=== PATIENT | female | born 1995 | race Caucasian/White ===

== ENCOUNTER 2017-03-07 18:48 | Emergency (ER) | END 2017-03-07 21:31 | disposition home or self-care (01) | DX: J02.9 Acute pharyngitis, unspecified (principal) | CPT/HCPCS: 70360; 71010; Z7502; Z7610 ==

== ENCOUNTER 2018-03-08 02:47 | Emergency (ER) | END 2018-03-08 03:22 | disposition home or self-care (01) ==

== ENCOUNTER 2018-03-16 01:20 | Emergency (ER) | END 2018-03-16 02:03 | disposition home or self-care (01) ==

== ENCOUNTER 2018-08-06 00:44 | Emergency (ER) | payer SELFPAY ==
[~2018-08-06] VITALS: Wt 62.0 kg
[~2018-08-06 00:44] MED LIST: ACET1TAB40 PO; ALBU8.5H8 INH; AMOX500C2 PO; AZIT250T PO; BENZ-6 PO; D-ME473S2 PO; HYDR-4011 PO; IBUP-1542 PO; NAPR-985 PO; PREN-39 PO; PSEU30TA38 PO
[2018-08-06 00:51] VITALS: BP 120/62; PULSE 105; RESP 18
--- NOTE | 2018-08-06 01:38 | ERD ---
ER Documentation Chief Complaint Chief Complaint RIGHT INDEX FINGER LAC FROM METAL CAN HPI 23-year-old female presents with laceration to right second finger on the distal pad surface that was sustained today when she was opening a can. She is right- hand dominant. No numbness or tingling. No loss of range of motion. Tetanus vaccination is up-to-date. ROS All systems reviewed and are negative except as per history of present illness. Medications Home Meds Active Scripts Ibuprofen* (Motrin*) 600 Mg Tab, 600 MG PO Q6H PRN for PAIN AND OR ELEVATED TEMP, #30 TAB Prov:CHELSY LUNDBERG NP 03/16/18 Benzonatate* (Tessalon Perle*) 100 Mg Capsule, 100 MG PO Q8H PRN for COUGH, #30 CAP Prov:CHELSY LUNDBERG NP 03/16/18 Albuterol Sulfate* (Proair HFA*) 8.5 Gm Hfa.aer.ad, 2 PUFF INH Q4H PRN for WHEEZING AND SOB, #1 INHALER Prov:CHELSY LUNDBERG NP 03/16/18 Azithromycin* (Zithromax*) 250 Mg Tablet, 250 MG PO .ZPACK DIRECTED, #6 TAB TAKE 500 MG (2 TABS) THE FIRST DAY THEN 250 MG (1 TAB) DAYS 2-5 Prov:CHELSY LUNDBERG NP 03/16/18 Pseudoephedrine Hcl* (Pseudoephedrine Hcl*) 30 Mg Tablet, 30 MG PO Q6 PRN for CONGESTION, #30 TAB Prov:SHEA VEGA PA-C 03/08/18 Dextromethorphan Hb-Promethazine Hcl* (Promethazine DM* Syrup) 473 Ml Syrup, 5 ML PO Q6 PRN for COUGH, #100 ML Prov:SHEA VEGA PA-C 03/08/18 Naproxen* (Naprosyn*) 500 Mg Tablet, 500 MG PO BID PRN for PAIN AND/OR INFLAMMATION, #30 TAB Prov:SHEA VEGA PA-C 03/08/18 Ibuprofen* (Motrin*) 600 Mg Tab, 600 MG PO Q6, #15 TAB Prov:ALIRIO MOREJON MD 03/07/17 Acetaminophen with Codeine (Acetaminophen-Cod #3 Tablet) 1 Each Tablet, 1 TAB PO Q6H PRN for PAIN, #10 TAB Prov:ALIRIO MOREJON MD 03/07/17 Amoxicillin* (Amoxicillin*) 500 Mg Cap, 500 MG PO TID for 10 Days, CAP Prov:ALIRIO MOREJON MD 03/07/17 Hydrocodone/Acetaminophen ([place] 5-325 Tablet) 1 Each Tablet, 1 TAB PO Q6H PRN for PAIN, #20 TAB Prov:CHELSY LUNDBERG NP 04/02/16 Ibuprofen* (Motrin*) 600 Mg Tab, 600 MG PO Q6H PRN for PAIN AND OR ELEVATED TEMP, #30 TAB Prov:CHELSY LUNDBERG NP 04/02/16 Reported Medications Vits W-Ca,Fe,Fa(<1MG) ( Vitamins) 1 Tab Tablet, 1 TAB PO DAILY 11/23/13 Allergies Allergies: Coded Allergies: No Known Allergies (Verified Allergy, Mild, 07/02/13) PMhx/Soc History of Surgery: No Anesthesia Reaction: No Hx Neurological Disorder: No Hx Respiratory Disorders: No Hx Cardiac Disorders: No Hx Psychiatric Problems: No Hx Miscellaneous Medical Probl: No Hx Alcohol Use: Yes (Occasional ) Hx Substance Use: No Hx Tobacco Use: Yes (black/mild 3/day; 5 cig/day) FmHx Family History: No diabetes Physical Exam Vitals Vital Signs Date Temp Pulse Resp B/P (MAP) Pulse Ox O2 O2 Flow FiO2 Time Delivery Rate 08/06/18 98.3 105 18 120/62 97 00:51 (81) Physical Exam Const: No acute distress Head: Atraumatic Eyes: Normal Conjunctiva ENT: Normal External Ears, Nose and Mouth. Neck: Full range of motion. No meningismus. Resp: Clear to auscultation bilaterally Cardio: Regular rate and rhythm, no murmurs Hand -right Skin: Distal pad surface of right second finger has semicircular 2 cm laceration Compartments: Soft Sensation: Intact shoulder/pinky/middle finger/thumb web space Bones: Nontender Snuffbox: Nontender Joints: No effusion Wrist: Flex/Ext: Normal Uln/Radial deviation: Normal Pron/Supination Normal Finger: Flex/Ext: Normal Add/abd: Normal Thumb: Flex/Ext: Normal Opposition: Normal Thumbs up: Normal Results 24 hrs Current Medications Medications Dose Sig/Radha Start Time Status Last (Trade) Ordered Route PRN Stop Time Admin Dose Reason Admin Lidocaine 5 ml ONCE ONCE 08/06/18 (Xylocaine INJ 02:00 1% (Mpf)) 08/06/18 02:01 Lidocaine 5 ml ONCE ONCE 08/06/18 (Xylocaine INJ 02:00 1% (Mpf)) 08/06/18 02:01 Procedures/MDM 23-year-old female presents with finger laceration. She is neurovascularly intact. Tetanus is up-to-date. The skin edges of the laceration were infiltrated with 1% lidocaine . The laceration was irrigated with copious amounts of normal saline. The wound was prepped with Betadine. On examination under direct light, there was no foreign body seen. The laceration was repaired with simple interrupted sutures. After repair, there was no continuing bleeding on repair and there did not appear to be any complication related to repair. The patient tolerated the procedure well and the wound was appropriately dressed and bandaged. I recommended the patient return in 2 days for a wound check and 7-10 days for removal of sutures. Departure Diagnosis: Primary Impression: Laceration Condition: Stable RODNEY MAK PA-C Aug 06, 2018 01:38
[2018-08-06] MEDS ORDERED: LIDOCAINE 1% (MPF) 5 ML VIAL INJ ONE ×2 (02:00)
== END 2018-08-06 02:14 | disposition home or self-care (01) ==
LOC: FTE 00:44
DX: S61.210A Laceration without foreign body of right index finger without damage to nail, initial encounter (principal); W26.8XXA Contact with other sharp object(s), not elsewhere classified, initial encounter; Y92.9 Unspecified place or not applicable; Z87.891 Personal history of nicotine dependence
CPT/HCPCS: 12001; Z7502; Z7610

== ENCOUNTER 2018-08-19 20:56 | Emergency (ER) | payer SELFPAY ==
[~2018-08-19] VITALS: Ht 154.9 cm; Wt 60.1 kg
[2018-08-19 21:27] VITALS: BP 140/79; PULSE 114; RESP 18; Ht 154.9 cm; Wt 60.1 kg
== END 2018-08-19 23:40 | disposition left against medical advice (07) ==
LOC: FTE 20:56
DX: Z53.21 Procedure and treatment not carried out due to patient leaving prior to being seen by health care provider (principal)

== ENCOUNTER 2018-08-26 00:44 | Emergency (ER) | payer SELFPAY ==
[~2018-08-26] VITALS: Ht 154.9 cm; Wt 63.8 kg
[2018-08-26 00:48] VITALS: Ht 154.9 cm; Wt 63.8 kg
[2018-08-26] MEDS ORDERED: D-ME473S2 PO (03:46)
[2018-08-26 03:50] VITALS: BP 113/60; PULSE 80; RESP 19
--- NOTE | 2018-09-04 20:19 | ERD ---
ER Documentation Chief Complaint Chief Complaint Date seen 08/26/18 COUGH, ST X 3 DAYS, NEEDS STITCHES REMOVED HPI 23-year-old female presents for cough and sore throat times 3 days. Patient also states that she needs stitches removed of the right index finger. She denies any fevers or chills. Has not tried any cough medication at home. Patient had her right index finger sticks for laceration about 2 weeks ago. ROS All systems reviewed and are negative except as per history of present illness. Medications Home Meds Active Scripts Dextromethorphan Hb-Promethazine Hcl* (Promethazine DM* Syrup) 473 Ml Syrup, 5 ML PO Q6 PRN for COUGH, #1 BOTTLE Prov:MAXWELLKATARINA DO 08/26/18 Ibuprofen* (Motrin*) 600 Mg Tab, 600 MG PO Q6H PRN for PAIN AND OR ELEVATED TEMP, #30 TAB Prov:CHELSY LUNDBERG NP 03/16/18 Benzonatate* (Tessalon Perle*) 100 Mg Capsule, 100 MG PO Q8H PRN for COUGH, #30 CAP Prov:CHELSY LUNDBERG NP 03/16/18 Albuterol Sulfate* (Proair HFA*) 8.5 Gm Hfa.aer.ad, 2 PUFF INH Q4H PRN for WHEEZING AND SOB, #1 INHALER Prov:CHELSY LUNDBERG NP 03/16/18 Azithromycin* (Zithromax*) 250 Mg Tablet, 250 MG PO .ZPACK DIRECTED, #6 TAB TAKE 500 MG (2 TABS) THE FIRST DAY THEN 250 MG (1 TAB) DAYS 2-5 Prov:CHELSY LUNDBERG NP 03/16/18 Pseudoephedrine Hcl* (Pseudoephedrine Hcl*) 30 Mg Tablet, 30 MG PO Q6 PRN for CONGESTION, #30 TAB Prov:SHEA VEGA PA-C 03/08/18 Dextromethorphan Hb-Promethazine Hcl* (Promethazine DM* Syrup) 473 Ml Syrup, 5 ML PO Q6 PRN for COUGH, #100 ML Prov:SHEA VEGA PA-C 03/08/18 Naproxen* (Naprosyn*) 500 Mg Tablet, 500 MG PO BID PRN for PAIN AND/OR INFLAMMATION, #30 TAB Prov:SHEA VEGA PA-C 03/08/18 Ibuprofen* (Motrin*) 600 Mg Tab, 600 MG PO Q6, #15 TAB Prov:ALIRIO MOREJON MD 03/07/17 Acetaminophen with Codeine (Acetaminophen-Cod #3 Tablet) 1 Each Tablet, 1 TAB PO Q6H PRN for PAIN, #10 TAB Prov:ALIRIO MOREJON MD 03/07/17 Amoxicillin* (Amoxicillin*) 500 Mg Cap, 500 MG PO TID for 10 Days, CAP Prov:ALIRIO MOREJON MD 03/07/17 Hydrocodone/Acetaminophen ([place] 5-325 Tablet) 1 Each Tablet, 1 TAB PO Q6H PRN for PAIN, #20 TAB Prov:CHELSY LUNDBERG NP 04/02/16 Ibuprofen* (Motrin*) 600 Mg Tab, 600 MG PO Q6H PRN for PAIN AND OR ELEVATED TEMP, #30 TAB Prov:CHELSY LUNDBERG NP 04/02/16 Reported Medications Vits W-Ca,Fe,Fa(<1MG) ( Vitamins) 1 Tab Tablet, 1 TAB PO DAILY 11/23/13 Allergies Allergies: Coded Allergies: No Known Allergies (Verified Allergy, Mild, 07/02/13) PMhx/Soc Medical and Surgical Hx: pt denies Medical Hx, pt denies Surgical Hx History of Surgery: No Anesthesia Reaction: No Hx Neurological Disorder: No Hx Respiratory Disorders: No Hx Cardiac Disorders: No Hx Psychiatric Problems: No Hx Miscellaneous Medical Probl: No Hx Alcohol Use: Yes (Occasional ) Hx Substance Use: No Hx Tobacco Use: Yes (black/mild 3/day; 5 cig/day) Smoking Status: Current every day smoker Physical Exam Vitals Temperature 99, pulse 82, respiration 18, blood pressure 127/59, O2 saturation 97% on room air Physical Exam Const: No acute distress Head: Atraumatic Eyes: Normal Conjunctiva ENT: Normal External Ears, bilateral tympanic membrane intact without erythema or bulging noted, nose and Mouth examination normal, no tonsillar swelling or exudate noted Neck: Full range of motion. No meningismus. Resp: Clear to auscultation bilaterally, no wheezing, rales, rhonchi Cardio: Regular rate and rhythm, no murmurs Skin: Right index finger stitches clean dry and intact Ext: No cyanosis, or edema Neur: Awake and alert Psych: Normal Mood and Affect Procedures/MDM Procedure Right index finger stitches removed The repair site seems to be healing well, no signs of infection Patient tolerated procedure well Medical Decision Making: Differential diagnosis includes but not limited to upper respiratory infection, pneumonia, sepsis, meningitis. Patient appeared well on physical examination, nontoxic appearing. Lungs were clear to auscultation bilaterally. There is low suspicion for pneumonia, sepsis, meningitis. Patient likely has an upper respiratory infection, likely viral. Therefore antibiotics not indicated. Discussed symptomatic treatment with patient who agrees with plan. Patient given prescription for supportive medications. Patient's right index finger stitches were removed, see procedure note above. Patient advised to follow up with PCP in 1-2 days. Patient advised to return to ED for new or worsening symptoms. Patient stable on discharge from the ED. Disclaimer: Inadvertent spelling and grammatical errors are likely due to EHR/dictation software use and do not reflect on the overall quality of patient care. Also, please note that the electronic time recorded on this note does not necessarily reflect the actual time of the patient encounter. Departure Diagnosis: Primary Impression: Cough Additional Impression: Encounter for re-check of laceration wound Condition: Fair Patient Instructions: Cough, Chronic, Uncertain Cause, (Adult) Referrals: [facility] YOU HAVE RECEIVED A MEDICAL SCREENING EXAM AND THE RESULTS INDICATE THAT YOU DO NOT HAVE A CONDITION THAT REQUIRES URGENT TREATMENT IN THE EMERGENCY DEPARTMENT. FURTHER EVALUATION AND TREATMENT OF YOUR CONDITION CAN WAIT UNTIL YOU ARE SEEN IN YOUR DOCTORS OFFICE WITHIN THE NEXT 1-2 DAYS. IT IS YOUR RESPONSIBILITY TO MAKE AN APPOINTMENT FOR FOLOW-UP CARE. IF YOU HAVE A PRIMARY DOCTOR --you should call your primary doctor and schedule an appointment IF YOU DO NOT HAVE A PRIMARY DOCTOR YOU CAN CALL OUR PHYSICIAN REFERRAL HOTLINE AT IF YOU CAN NOT AFFORD TO SEE A PHYSICIAN YOU CAN CHOSE FROM THE FOLLOWING [facility] [address] [facility]. [facility] [address] [facility]. [facility] [address] [facility]. [facility] [address] [facility]. [facility] [address] [facility]. [facility] [address] Additional Instructions: Call your primary care doctor TOMORROW for an appointment during the next 1-2 days.See the doctor sooner or return here if your condition worsens before your appointment time. KATARINA ARREOLA DO Sep 04, 2018 20:19
== END 2018-08-26 03:54 | disposition home or self-care (01) ==
LOC: FTE 00:44
DX: R05 Cough (principal); F17.210 Nicotine dependence, cigarettes, uncomplicated; Z48.01 Encounter for change or removal of surgical wound dressing
CPT/HCPCS: 99283